=== PATIENT | male | born 1935 | race Caucasian/White ===

== ENCOUNTER → 2017-04-23 | Outpatient (CLI) | payer OTHER ==
[~2017-04-23] MED LIST: ACETAMINOPHEN325 M1 PO; ALEVE220 MG PO; AMOXICILLIN875 MG PO; ASPIRIN EC81 M1 PO; ASPIRIN81 M2 PO; AUGMENTIN 875875 M1 PO; CARVEDILOL12.5 MG PO; CELEXA 20 MG TA20 M1 PO; CENTRUM SILVER1 EAC1 OR; CENTRUM SILVER1 EAC4 PO; CHOLESTEROL MA1 EACH; CHONDROITIN SU250 MG PO; COUMADIN 5 MG TA5 M1; COZAAR 25 MG TA25 MG PO; CRESTOR10 MG PO; EFFIENT10 MG PO; FISH OIL 1,0001 EAC5 OR; FLAX OIL1000 MG PO; GLUCOSAMINE &1 EACH OR; GLUCOSAMINE1000 MG PO; KEFLEX500 MG PO; LISINOPRIL5 MG PO; NITROSTAT0.4 MG SL; NORCO 5-325 TA1 EACH PO; OCUVITE TABLET1 EAC1 PO; PROTONIX40 M1 PO; TRAMADOL 50 MG50 MG PO; VISION VITAMIN1 EACH OR; VITAMIN D-32000 UNIT PO; VITAMIN D32000 UNIT OR; ZOCOR 10 MG TAB10 MG PO
== END ==
LOC: RAD 08:56
DX: R05 Cough (principal)

== ENCOUNTER → 2019-05-04 | Outpatient (CLI) | payer OTHER | LOC: SJCVCIMAG 09:03 | DX: I82.411 Acute embolism and thrombosis of right femoral vein (principal); I25.10 Atherosclerotic heart disease of native coronary artery without angina pectoris; I25.2 Old myocardial infarction; E78.2 Mixed hyperlipidemia; F41.9 Anxiety disorder, unspecified; Z98.61 Coronary angioplasty status; Z86.74 Personal history of sudden cardiac arrest ==

== ENCOUNTER → 2019-05-12 | Outpatient (CLI) | payer OTHER | LOC: SJCVC 10:24 | DX: Z51.81 Encounter for therapeutic drug level monitoring (principal); I25.10 Atherosclerotic heart disease of native coronary artery without angina pectoris; E78.5 Hyperlipidemia, unspecified; Z95.1 Presence of aortocoronary bypass graft; Z72.89 Other problems related to lifestyle; Z79.01 Long term (current) use of anticoagulants; Z79.82 Long term (current) use of aspirin; Z79.899 Other long term (current) drug therapy ==

== ENCOUNTER → 2019-06-09 | Outpatient (CLI) | payer OTHER | LOC: SJCVC 10:02 | PROVIDERS: ATTEND Internal Medicine Cardiovascular Disease | DX: Z51.81 Encounter for therapeutic drug level monitoring (principal); I25.10 Atherosclerotic heart disease of native coronary artery without angina pectoris; I42.9 Cardiomyopathy, unspecified; I25.2 Old myocardial infarction; E78.00 Pure hypercholesterolemia, unspecified; Z68.27 Body mass index [BMI] 27.0-27.9, adult; Z79.01 Long term (current) use of anticoagulants ==

== ENCOUNTER → 2019-07-08 | Outpatient (CLI) | payer OTHER | LOC: SJCVC 09:36 | DX: Z51.81 Encounter for therapeutic drug level monitoring (principal); I25.10 Atherosclerotic heart disease of native coronary artery without angina pectoris; I42.9 Cardiomyopathy, unspecified; I25.2 Old myocardial infarction; E78.5 Hyperlipidemia, unspecified; Z68.27 Body mass index [BMI] 27.0-27.9, adult; Z79.01 Long term (current) use of anticoagulants ==

== ENCOUNTER → 2019-07-23 | Outpatient (CLI) | payer OTHER | LOC: SJCVC 11:06 | DX: Z51.81 Encounter for therapeutic drug level monitoring (principal); I25.10 Atherosclerotic heart disease of native coronary artery without angina pectoris; E78.5 Hyperlipidemia, unspecified; I25.2 Old myocardial infarction; Z79.01 Long term (current) use of anticoagulants; Z79.899 Other long term (current) drug therapy; Z86.718 Personal history of other venous thrombosis and embolism ==

== ENCOUNTER → 2019-08-10 | Outpatient (CLI) | payer OTHER | LOC: SJCVC 10:08 | DX: Z51.81 Encounter for therapeutic drug level monitoring (principal); I25.10 Atherosclerotic heart disease of native coronary artery without angina pectoris; I42.9 Cardiomyopathy, unspecified; E78.5 Hyperlipidemia, unspecified; Z68.27 Body mass index [BMI] 27.0-27.9, adult; Z79.01 Long term (current) use of anticoagulants ==

== ENCOUNTER → 2019-09-14 | Outpatient (CLI) | payer OTHER | LOC: SJCVC 09:45 | PROVIDERS: ATTEND Internal Medicine Cardiovascular Disease | DX: Z51.81 Encounter for therapeutic drug level monitoring (principal); Z79.01 Long term (current) use of anticoagulants ==

== ENCOUNTER → 2019-10-12 | Outpatient (CLI) | payer OTHER | LOC: SJCVC 10:52 | PROVIDERS: ATTEND Internal Medicine Cardiovascular Disease | DX: Z51.81 Encounter for therapeutic drug level monitoring (principal); Z79.01 Long term (current) use of anticoagulants ==

== ENCOUNTER → 2019-11-17 | Outpatient (CLI) | payer OTHER | LOC: SJCVC 14:58 | PROVIDERS: ATTEND Internal Medicine Cardiovascular Disease | DX: Z51.81 Encounter for therapeutic drug level monitoring (principal); I42.9 Cardiomyopathy, unspecified; I10 Essential (primary) hypertension; I25.10 Atherosclerotic heart disease of native coronary artery without angina pectoris; Z68.27 Body mass index [BMI] 27.0-27.9, adult; Z79.01 Long term (current) use of anticoagulants; Z79.899 Other long term (current) drug therapy ==

== ENCOUNTER → 2019-12-01 | Outpatient (CLI) | payer OTHER | LOC: SJCVCIMAG 06-10 13:40 | PROVIDERS: ATTEND Internal Medicine Cardiovascular Disease | DX: I70.202 Unspecified atherosclerosis of native arteries of extremities, left leg (principal) ==

== ENCOUNTER → 2019-12-03 | Outpatient (CLI) | payer OTHER | LOC: SJCVCIMAG 08:51 | PROVIDERS: ATTEND Internal Medicine Cardiovascular Disease | DX: I82.511 Chronic embolism and thrombosis of right femoral vein (principal); I82.531 Chronic embolism and thrombosis of right popliteal vein; I25.10 Atherosclerotic heart disease of native coronary artery without angina pectoris; E78.00 Pure hypercholesterolemia, unspecified; I87.2 Venous insufficiency (chronic) (peripheral); I25.2 Old myocardial infarction; Z79.01 Long term (current) use of anticoagulants; Z79.899 Other long term (current) drug therapy ==

== ENCOUNTER → 2019-12-22 | Outpatient (CLI) | payer OTHER | LOC: SJCVCIMAG 08:26 | PROVIDERS: ATTEND Internal Medicine Cardiovascular Disease | DX: I49.3 Ventricular premature depolarization (principal); I49.1 Atrial premature depolarization; I25.10 Atherosclerotic heart disease of native coronary artery without angina pectoris; I42.9 Cardiomyopathy, unspecified; I25.2 Old myocardial infarction; E78.5 Hyperlipidemia, unspecified; Z68.27 Body mass index [BMI] 27.0-27.9, adult; Z79.01 Long term (current) use of anticoagulants; Z79.899 Other long term (current) drug therapy ==

== ENCOUNTER → 2020-01-21 | Outpatient (CLI) | payer OTHER | LOC: SJCVC 14:18 | PROVIDERS: ATTEND Internal Medicine Cardiovascular Disease | DX: Z51.81 Encounter for therapeutic drug level monitoring (principal); I25.10 Atherosclerotic heart disease of native coronary artery without angina pectoris; I42.9 Cardiomyopathy, unspecified; E78.5 Hyperlipidemia, unspecified; I25.2 Old myocardial infarction; Z98.61 Coronary angioplasty status; Z68.27 Body mass index [BMI] 27.0-27.9, adult; Z79.01 Long term (current) use of anticoagulants; Z79.899 Other long term (current) drug therapy ==

== ENCOUNTER → 2020-02-22 | Outpatient (CLI) | payer OTHER | LOC: SJCVC 10:16 | PROVIDERS: ATTEND Internal Medicine Cardiovascular Disease | DX: Z51.81 Encounter for therapeutic drug level monitoring (principal); I25.10 Atherosclerotic heart disease of native coronary artery without angina pectoris; I42.9 Cardiomyopathy, unspecified; I25.2 Old myocardial infarction; E78.5 Hyperlipidemia, unspecified; Z68.27 Body mass index [BMI] 27.0-27.9, adult; Z79.01 Long term (current) use of anticoagulants; Z79.899 Other long term (current) drug therapy; Z86.718 Personal history of other venous thrombosis and embolism ==

== ENCOUNTER → 2020-03-29 | Outpatient (CLI) | payer OTHER | LOC: SJCVC 13:13 | PROVIDERS: ATTEND Internal Medicine Cardiovascular Disease | DX: Z51.81 Encounter for therapeutic drug level monitoring (principal); I25.10 Atherosclerotic heart disease of native coronary artery without angina pectoris; I25.5 Ischemic cardiomyopathy; E78.5 Hyperlipidemia, unspecified; Z86.74 Personal history of sudden cardiac arrest; Z86.718 Personal history of other venous thrombosis and embolism; Z79.01 Long term (current) use of anticoagulants ==

== ENCOUNTER → 2020-07-08 | Outpatient (CLI) | payer OTHER | LOC: SJCVC 10:19 | PROVIDERS: ATTEND Internal Medicine Cardiovascular Disease | DX: Z51.81 Encounter for therapeutic drug level monitoring (principal); Z79.01 Long term (current) use of anticoagulants ==

== ENCOUNTER → 2020-08-05 | Outpatient (CLI) | payer OTHER | LOC: SJCVC 10:20 | PROVIDERS: ATTEND Internal Medicine Cardiovascular Disease | DX: Z51.81 Encounter for therapeutic drug level monitoring (principal); I25.10 Atherosclerotic heart disease of native coronary artery without angina pectoris; I25.5 Ischemic cardiomyopathy; I25.2 Old myocardial infarction; I45.10 Unspecified right bundle-branch block; R00.1 Bradycardia, unspecified; Z86.718 Personal history of other venous thrombosis and embolism; Z79.01 Long term (current) use of anticoagulants ==

== ENCOUNTER → 2020-10-10 | Outpatient (CLI) | payer OTHER | LOC: SJCVCIMAG 10:32 → SJCVC 10:32 → EDBD 10:32 | PROVIDERS: ATTEND Internal Medicine Cardiovascular Disease | DX: R94.31 Abnormal electrocardiogram [ECG] [EKG] (principal); R00.1 Bradycardia, unspecified; I82.432 Acute embolism and thrombosis of left popliteal vein; I82.413 Acute embolism and thrombosis of femoral vein, bilateral; I45.10 Unspecified right bundle-branch block; E78.00 Pure hypercholesterolemia, unspecified; I25.10 Atherosclerotic heart disease of native coronary artery without angina pectoris; M79.605 Pain in left leg; D68.59 Other primary thrombophilia; I82.513 Chronic embolism and thrombosis of femoral vein, bilateral; I87.2 Venous insufficiency (chronic) (peripheral); I42.9 Cardiomyopathy, unspecified; I25.2 Old myocardial infarction; F10.10 Alcohol abuse, uncomplicated; Z95.5 Presence of coronary angioplasty implant and graft; Z79.01 Long term (current) use of anticoagulants; Z79.899 Other long term (current) drug therapy ==

== ENCOUNTER → 2020-10-18 | Outpatient (CLI) | payer OTHER | LOC: SJCVC 10:42 → EDBD 10:43 → SJCVC 10:43 | PROVIDERS: ATTEND Internal Medicine Cardiovascular Disease | DX: Z51.81 Encounter for therapeutic drug level monitoring (principal); I25.10 Atherosclerotic heart disease of native coronary artery without angina pectoris; I42.9 Cardiomyopathy, unspecified; I25.2 Old myocardial infarction; Z68.27 Body mass index [BMI] 27.0-27.9, adult; Z79.01 Long term (current) use of anticoagulants; Z79.899 Other long term (current) drug therapy; Z86.718 Personal history of other venous thrombosis and embolism ==

== ENCOUNTER → 2020-11-01 | Outpatient (CLI) | payer OTHER | LOC: SJCVC 11:19 | PROVIDERS: ATTEND Internal Medicine Cardiovascular Disease | DX: Z51.81 Encounter for therapeutic drug level monitoring (principal); I25.10 Atherosclerotic heart disease of native coronary artery without angina pectoris; E78.5 Hyperlipidemia, unspecified; Z79.01 Long term (current) use of anticoagulants; Z79.899 Other long term (current) drug therapy; Z95.5 Presence of coronary angioplasty implant and graft; Z72.89 Other problems related to lifestyle ==

== ENCOUNTER → 2020-11-22 | Outpatient (CLI) | payer OTHER | LOC: SJCVC 10:22 → EDBD 10:22 | PROVIDERS: ATTEND Internal Medicine Cardiovascular Disease | DX: Z51.81 Encounter for therapeutic drug level monitoring (principal); I25.10 Atherosclerotic heart disease of native coronary artery without angina pectoris; I42.9 Cardiomyopathy, unspecified; R00.1 Bradycardia, unspecified; I45.10 Unspecified right bundle-branch block; I25.2 Old myocardial infarction; Z79.01 Long term (current) use of anticoagulants ==

== ENCOUNTER → 2020-12-23 | Outpatient (CLI) | payer OTHER | LOC: SJCVC 10:01 | PROVIDERS: ATTEND Internal Medicine Cardiovascular Disease | DX: Z51.81 Encounter for therapeutic drug level monitoring (principal); I25.10 Atherosclerotic heart disease of native coronary artery without angina pectoris; I42.9 Cardiomyopathy, unspecified; I82.491 Acute embolism and thrombosis of other specified deep vein of right lower extremity; E78.5 Hyperlipidemia, unspecified; M47.816 Spondylosis without myelopathy or radiculopathy, lumbar region; Z79.01 Long term (current) use of anticoagulants ==

== ENCOUNTER → 2021-02-27 | Outpatient (CLI) | payer OTHER | LOC: SJCVCIMAG 08:21 | PROVIDERS: ATTEND Internal Medicine Cardiovascular Disease | DX: I70.1 Atherosclerosis of renal artery (principal); I25.10 Atherosclerotic heart disease of native coronary artery without angina pectoris; I10 Essential (primary) hypertension; E78.5 Hyperlipidemia, unspecified; Z51.81 Encounter for therapeutic drug level monitoring; Z79.01 Long term (current) use of anticoagulants; Z79.899 Other long term (current) drug therapy ==

== ENCOUNTER → 2021-04-24 | Outpatient (CLI) | payer OTHER | LOC: SJCVC 09:30 | PROVIDERS: ATTEND Internal Medicine Cardiovascular Disease | DX: Z51.81 Encounter for therapeutic drug level monitoring (principal); Z79.01 Long term (current) use of anticoagulants ==